=== PATIENT | female | born 1960 | race Hispanic/Latino ===

== ENCOUNTER 2020-08-14 06:46 | Day surgery (SDC) | payer OTHER ==
[2020-08-14] MEDS ORDERED: SODIUM CHLORIDE 0.9% 1000 ML 1,000 ML IV SCH (07:00)
[2020-08-14] MEDS ORDERED: WATER FOR IRRIG STERILE 250 ML BOTTLE IR ONE (07:50)
--- NOTE | 2020-08-14 07:57 | Anesthesia Consultation ---
Anesthesia Consult and Med Hx Date of service: 08/14/20 - Airway Anesthetic Teeth Evaluation: Poor (some missing teeth), Edentulous (on the top) ROM Head & Neck: Adequate Mental/Hyoid Distance: Adequate Mallampati Class: Class III Intubation Access Assessment: Possibly Difficult - Pre-Operative Health Status ASA Pre-Surgery Classification: ASA3 Proposed Anesthetic Plan: MAC - Cardiovascular System Hx Hypertension: Yes - Gastrointestinal Hx Gastroesophageal Reflux Disease: Yes (dysphagea) - Endocrine Hx Non-Insulin Dependent Diabetes: Yes (A1c 10) - Other Systems Hx Obesity: Yes (BMI 37.2)
--- NOTE | 2020-08-14 08:02 | Anesthesia Day of Surgery ---
Anesthesia Day of Surgery - Day of Surgery Patient Examined: Yes Patient H&P Reviewed: Yes Patient is NPO: Yes
[2020-08-14] MEDS ORDERED: LIDOCAINE MPF (2%) 20 MG/1 ML VIAL 5 ML ONE (08:12)
[2020-08-14] MEDS ORDERED: propofoL 200 MG/20 ML VIAL IV ONE ×2 (08:12→08:39)
[2020-08-14 09:51] VITALS: BP 135/63
--- NOTE | 2020-08-14 13:55 | Post Anesthesia Evaluation ---
- Post Anesthesia Evaluation Patient Participated: Yes Airway Patent: Yes Stable Respiratory Function: Yes Nausea/Vomiting: No Temp > 96.8F: Yes Pain Manageable: Yes Adequeate Hydration: Yes Anesthesia Complications: Yes Block Receding Appropriately: Not Applicable Patient on Ventilator: No
== END 2020-08-14 09:45 | disposition home or self-care (01) ==
LOC: GIO 06:46
DX: R13.10 Dysphagia, unspecified (principal); K21.00 Gastro-esophageal reflux disease with esophagitis, without bleeding; K29.51 Unspecified chronic gastritis with bleeding; K31.89 Other diseases of stomach and duodenum; E78.00 Pure hypercholesterolemia, unspecified; I10 Essential (primary) hypertension; E66.9 Obesity, unspecified; E11.9 Type 2 diabetes mellitus without complications; D64.9 Anemia, unspecified; Z68.37 Body mass index [BMI] 37.0-37.9, adult
CPT/HCPCS: 43239; 43249; 82962; 88305; 88312; 88342; C1726; J2704; J7030

== ENCOUNTER 2021-03-12 08:15 | Day surgery (SDC) | payer OTHER ==
[~2021-03-12 08:15] MED LIST: SODIUM CHLORIDE 0.9% 1000 ML 1,000 ML IV SCH
--- NOTE | 2021-03-12 08:56 | Anesthesia Day of Surgery ---
Anesthesia Day of Surgery - Day of Surgery Patient Examined: Yes Patient H&P Reviewed: Yes Patient is NPO: Yes
--- NOTE | 2021-03-12 08:57 | Anesthesia Consultation ---
Anesthesia Consult and Med Hx Date of service: 03/12/21 - Airway Anesthetic Teeth Evaluation: Dentures (Upper) ROM Head & Neck: Adequate Mental/Hyoid Distance: Adequate Mallampati Class: Class II Intubation Access Assessment: Good - Pre-Operative Health Status ASA Pre-Surgery Classification: ASA2 Proposed Anesthetic Plan: MAC - Pulmonary Hx Smoking: No - Cardiovascular System Hx Hypertension: Yes - Gastrointestinal Hx Gastroesophageal Reflux Disease: Yes (dysphagea) - Endocrine Hx Non-Insulin Dependent Diabetes: Yes (A1c 10) - Other Systems Hx Obesity: Yes (BMI 37.2)
[2021-03-12] MEDS ORDERED: propofoL 200 MG/20 ML VIAL IV ONE ×3 (09:21→09:42)
[2021-03-12] MEDS ORDERED: LIDOCAINE MPF (2%) 20 MG/1 ML VIAL 5 ML ONE (09:23)
[2021-03-12] MEDS ORDERED: PHENYLEPHRINE/NS 1,000 MCG/10 ML SYRINGE (OR USE) IV ONE (09:45)
--- NOTE | 2021-03-12 10:10 | Procedure Note ---
Date of procedure: 03/12/21 Pre-op diagnosis: Dysphagia/ Colon Polyp Screening/ P/H/O Colon Polyps Post-op diagnosis: other (Mild, Benign Esophageal balloon dilation (dilated with a 20 mm Balloon)/Mild to Moderate Erosive Esophagitis/R/O Eosinophilic Esophagitis/ Gastritis/ Extensive, Left Colon Diverticular Disease/ Minor,Internal Hemorrhoid/ No Colon Polyps noted) Procedure: EGD with Biopsy and Esophageal Balloon dilation (20 mm Balloon)/ Colonoscopy Anesthesia: MAC Surgeon: ANABEL BAKER Estimated blood loss: minimal Pathology: list Specimen disposition: to lab Condition: stable Disposition: same day (Encourage fiber intake and treat with PPI. Avoid aspirin and NSAID for 5 days, otherwise resume home medication and F/U in 1 to 2 weeks)
--- NOTE | 2021-03-12 10:22 | Operative Report ---
DATE OF SURGERY: 03/12/2021 NDICATIONS: This is a 60-year-old white female who has a history of dysphagia. She has had required esophageal dilation in the past with a balloon dilation. She has lately been having some problems with dysphagia again. EGD was done to assess for the esophageal dilation and to do a balloon dilation if needed. DESCRIPTION OF PROCEDURE: Procedure was done after getting informed consent with MAC anesthesia. The instrument was passed through the hypopharynx into the esophagus, which showed some mild benign esophageal stenosis. This was dilated at the end of the procedure with a 20 mm balloon that was maintained for a minute. There was some [id number] distal erosive esophagitis. Biopsy was done from the distal esophagus as well as from the mid esophagus to assess for the severity of the erosive esophagitis and to rule out for any eosinophilic esophagitis. Stomach showed gastritis. Biopsy was done from the gastric antrum, gastric body and angular incisura to rule out for H. pylori and atrophic gastritis. The pylorus was patent. The duodenum in the first and second portion appeared normal. There was minimal bleeding associated with the procedure. No complications associated with the procedure. ASSESSMENT: Dysphagia secondary to mild benign esophageal stenosis, status post balloon dilation, mild to moderate erosive esophagitis, rule out eosinophilic esophagitis and gastritis. PLAN: To treat the patient with PPI, have the patient avoid aspirin and aspirin-related products and follow up in the office in 1-2 weeks' time. A colonoscopy is also going to be done as part of colon polyp screening and because of prior history of colon polyps. The patient will be asked to avoid aspirin and aspirin-related products for the next few days, otherwise resume home medication and follow up in the office in 1-2 weeks' time. Procedure was done in the GI lab with assistance of the GI lab team, which included the GI nurse, the lab animal technician and with assistance of anesthesia. TID: [id number] RECEIPT: [id number] OLIVIA/KODY
--- NOTE | 2021-03-12 10:24 | Operative Report ---
DATE OF SURGERY: 03/12/2021 PROCEDURE: Colonoscopy. INDICATIONS: This is a 60-year-old white female who had some dysphagia, had EGD and esophageal dilation done prior to the colonoscopy. Colonoscopy was done as part of colon polyp screening and because of prior history of colon polyps. DESCRIPTION OF PROCEDURE: Procedure was done after getting informed consent with MAC anesthesia. Initial rectal examination was unremarkable. The instrument was passed through the rectum onto the cecum, which was identified with ileocecal valve and appendiceal orifice. Visualization was fair to good of cecum, ascending colon, transverse colon, descending colon. Transverse colon showed normal mucosa. There were a few diverticula noted in the proximal colon, more extensive diverticula was noted in the left colon, which included the descending colon and the sigmoid, some of which were quite deep and the rectum showed some minor internal hemorrhoid on the retroverted view. No colon polyps were noted at this time. ASSESSMENT: History of colon polyp, colon polyp screening, no colon polyps at present. Extensive diverticular disease, mainly in the left colon and minor internal hemorrhoid. The patient will be asked to take fiber supplements, also treated with PPI because of the EGD findings of esophagitis and gastritis. The patient will be asked to avoid aspirin and aspirin-related products for the next few days and follow up in the office in 1-2 weeks' time. Procedure was done in the GI lab with assistance of the GI lab team, which included the GI nurse, the construction technology instructor and the assistance of anesthesia. TID: [id number] RECEIPT: [id number] EDI
[2021-03-12 11:20] VITALS: BP 121/71
--- NOTE | 2021-03-12 13:44 | Post Anesthesia Evaluation ---
- Post Anesthesia Evaluation Patient Participated: Yes Airway Patent: Yes Stable Respiratory Function: Yes Nausea/Vomiting: No Temp > 96.8F: Yes Pain Manageable: Yes Adequeate Hydration: Yes Anesthesia Complications: No Block Receding Appropriately: Not Applicable Patient on Ventilator: No
== END 2021-03-12 11:00 | disposition home or self-care (01) ==
LOC: GIO 08:15
DX: Z12.11 Encounter for screening for malignant neoplasm of colon (principal); K30 Functional dyspepsia; R13.10 Dysphagia, unspecified; K21.00 Gastro-esophageal reflux disease with esophagitis, without bleeding; K29.50 Unspecified chronic gastritis without bleeding; K57.30 Diverticulosis of large intestine without perforation or abscess without bleeding; K64.8 Other hemorrhoids; K63.89 Other specified diseases of intestine; K31.89 Other diseases of stomach and duodenum; I10 Essential (primary) hypertension; E11.9 Type 2 diabetes mellitus without complications; E66.9 Obesity, unspecified; E78.00 Pure hypercholesterolemia, unspecified; Z79.899 Other long term (current) drug therapy; Z68.38 Body mass index [BMI] 38.0-38.9, adult
CPT/HCPCS: 43239; 43249; 45378; 82962; 88305; 88342; C1726; J2370; J2704; J3490; J7030; J7120; Q0162